=== PATIENT | female | born 1965 | race Hispanic/Latino ===

== ENCOUNTER 2019-12-17 06:40 | Emergency (ER) | payer SELFPAY ==
[2019-12-17] MEDS ORDERED: Ondansetron ODT 4 MG TAB ONE (06:49)
[2019-12-17] MEDS ORDERED: Meclizine HCl 25 MG TAB ONE ×2 (07:58→08:10)
[2019-12-17] MEDS ORDERED: Ondansetron PF 4 MG/2 ML Vial ONE (07:58)
[2019-12-17] MEDS ORDERED: Metoclopramide HCl 10 MG/2 ML VIAL ONE (07:58)
[2019-12-17 08:00] LABS: #Basophils 0.1 thou/uL (0.0-0.2); #Eosinphils 0.1 thou/uL (0.0-0.7); #Lymphocytes 1.3 thou/uL (1.20-3.40); #Monocytes 0.2 thou/uL (0.11-0.59); #Neutrophils 4.4 thou/uL (1.40-6.50); %Basophils 1.2 % (0.0-1.0); %Lymphocytes 20.9 % (21.0-51.0); %Monocytes 4.1 % (0.0-10.0); %Neutrophils 72.8 % (42.0-75.0); Hemoglobin 14.3 g/dL (12.0-16.0); Mean Corpuscular HGB CONC 33.1 g/dL (32.0-36.0); Mean Corpuscular Hemoglobin 33.2 pg (27.0-31.0); Platelet Count 168 thou/uL (130-400)
[2019-12-17 08:17] LABS: ALT (SGPT) 81 U/L (8-55); AST (SGOT) 240 U/L (5-34); Albumin 4.4 g/dL (3.5-5.0); Alkaline Phosphatase 163 U/L (40-110); Anion Gap 20 mmol/L (10-20); BUN (Urea Nitrogen) 8 mg/dL (9.8-20.1); Bilirubin, Total 0.8 mg/dL (0.2-1.2); Calc. Creatinine Clearance 0 mL/min (70-130); Calcium 8.6 mg/dL (7.8-10.44); Carbon Dioxide 23 mmol/L (22-29); Chloride 106 mmol/L (98-107); Estimated GFR-MDRD 47; Globulin 3.9 g/dL (2.4-3.5); Glucose 138 mg/dL (70-105); Lipase 79 U/L (8-78); Protein, Total 8.3 g/dL (6.0-8.3); Sodium 146 mmol/L (136-145)
[2019-12-17] MEDS ORDERED: Morphine 4 MG/ML VIAL ONE (09:17)
[2019-12-17] MEDS ORDERED: Potassium Chloride 20 MEQ TAB ONE (09:17)
[2019-12-17 09:23] LABS: Bilirubin Negative (Negative); Blood, Urine Trace (Negative); Clarity Clear (Clear); Glucose, Urine (Dipstick) Negative (Negative); Leukocyte Negative (Negative); Nitrite Negative (Negative); Protein, Urine (Dipstick) Trace mg/dL (Neg-Trace)
[2019-12-17 09:29] LABS: RBC/HPF 0-3 HPF (0-3)
[2019-12-17 09:30] LABS: Bacteria/HPF Rare-Few HPF (None Seen); Squamous Epithelial 0-3 HPF (0-3); WBC/HPF 0-3 HPF (0-3)
== END 2019-12-17 10:49 | disposition home or self-care (01) ==
LOC: BURERS 06:40
DX: E86.0 Dehydration (principal); E87.6 Hypokalemia; R11.2 Nausea with vomiting, unspecified; R19.7 Diarrhea, unspecified; R74.0 Nonspecific elevation of levels of transaminase and lactic acid dehydrogenase [LDH]
CPT/HCPCS: 80053; 81003; 81015; 83690; 83735; 85025; 87804; 93005; 96365; 96366; 96375; J2270; J2405; J2765; J8597; Q0162

== ENCOUNTER → 2020-03-17 | Emergency (ER) | payer OTHER, SELFPAY ==
[~2020-03-17] MED LIST: Aspirin Chewable 81 MG TAB ONE; Iopamidol 370 76% 100 ML VIAL ONE; Lorazepam 2 MG/ML VIAL ONE; Magnesium 2 GM/50 ML BAG (IN WATER) ONE; Nitroglycerin 0.4 MG TAB 1 EACH ONE; Nitroglycerin 2% Ointment 1 INCH/1 GM Packet ONE; Ondansetron ODT 4 MG TAB SL PRN; Ondansetron PF 4 MG/2 ML Vial IVP PRN; Potassium Chloride 20 MEQ TAB ONE
[2020-03-17 14:30] LABS: #Basophils 0.1 thou/uL (0.0-0.2); #Lymphocytes 0.8 thou/uL (1.20-3.40); #Monocytes 0.5 thou/uL (0.11-0.59); #Neutrophils 8.9 thou/uL (1.40-6.50); %Eosinophils 0.1 % (0.0-10.0); %Lymphocytes 7.7 % (21.0-51.0); %Monocytes 5.2 % (0.0-10.0); %Neutrophils 86.1 % (42.0-75.0); Hemoglobin 14.7 g/dL (12.0-16.0); Mean Corpuscular HGB CONC 31.7 g/dL (32.0-36.0); Mean Corpuscular Hemoglobin 31.8 pg (27.0-31.0); Mean Platelet Volume 7.9 fL (7.4-10.4); Platelet Count 236 thou/uL (130-400); RBC Distribution Width 12.6 % (11.5-14.5); Red Blood Cell (RBC) Count 4.63 mill/uL (4.20-5.40); White Blood Cell (WBC) Count 10.4 thou/uL (4.8-10.8)
[2020-03-17 14:48] LABS: ALT (SGPT) 79 U/L (8-55); AST (SGOT) 169 U/L (5-34); Acetaminophen Less than 6.0 mcg/mL (10.0-30.0); Albumin 4.7 g/dL (3.5-5.0); Alcohol 19 mg/dL (Less than 10); Alkaline Phosphatase 163 U/L (40-110); Anion Gap 22 mmol/L (10-20); BUN (Urea Nitrogen) 5 mg/dL (9.8-20.1); CK (CPK) 278 U/L (29-168); Calc. Creatinine Clearance 0 mL/min (70-130); Calcium 9.3 mg/dL (7.8-10.44); Carbon Dioxide 22 mmol/L (22-29); Chloride 100 mmol/L (98-107); Estimated GFR-MDRD 47; Globulin 4.1 g/dL (2.4-3.5); Glucose 123 mg/dL (70-105); Lipase 41 U/L (8-78); Protein, Total 8.8 g/dL (6.0-8.3); Salicylate Less than 8.0 mg/dL (15.0-30.0); Sodium 141 mmol/L (136-145)
[2020-03-17 14:54] LABS: Bilirubin Negative (Negative); Blood, Urine Small (Negative); Clarity Clear (Clear); Glucose, Urine (Dipstick) Negative (Negative); Leukocyte Negative (Negative); Nitrite Negative (Negative); Protein, Urine (Dipstick) > or equal to 300 mg/dL (Neg-Trace)
[2020-03-17 14:55] LABS: Bacteria/HPF None Seen HPF (None Seen); RBC/HPF 0-3 HPF (0-3); Squamous Epithelial 0-3 HPF (0-3); WBC/HPF 0-3 HPF (0-3)
[2020-03-17 14:58] LABS: Potassium 2.9 mmol/L (3.5-5.1)
[2020-03-17 15:02] LABS: Amphetamine Not Detected (NotDetected); Benzodiazepine Screen Not Detected (NotDetected); Cocaine Metabolite Screen Detected (NotDetected); Methamphetamine Detected (NotDetected); Opiate Screen Not Detected (NotDetected); Phencyclidine (PCP) Not Detected (NotDetected); THC/Cannabinoid Screen Detected (NotDetected)
[2020-03-17 15:03] LABS: Barbiturates Screen Not Detected (NotDetected); Medtox Control Line Valid? VALID (VALID); Methadone Not Detected (NotDetected); Oxycodone Screen Not Detected (NotDetected); Tricyclic Screen Not Detected (NotDetected)
[2020-03-17 15:03] LABS: CKMB 4.2 ng/mL (0-6.6)
--- NOTE | 2020-03-17 15:14 | RAD ---
PORTABLE CHEST: Date: 03-17-2020 An AP portable film at 1428 is compared with a 08-29-11 study. FINDINGS: The heart is normal in size and the lungs are clear. No infiltrate or effusion was seen. There is no adverse interval change. There is no edema or congestion. IMPRESSION: No acute findings. POS: HOME
--- NOTE | 2020-03-17 15:50 | CT ---
CT ANGIO OF THE CHEST WITH CONTRAST: Date: 03-17-[address] of the chest was performed for evaluation of chest pain, shortness of breath, and an elevat ed D-Dimer. Axial slices were acquired after giving a bolus of IV contrast, then multiplanar reconstr uctions, including MIP imaging, was done. FINDINGS: There is moderately good opacification of the pulmonary artery system. There were no defects in the m ore proximal branches to suggest embolism. Small distal clots would be missed on this study. There is no sign of aortic aneurysm or resection. There is no significant arterial sclerotic change. The annamaria nary arteries showed no significant calcification. The lungs are clear except for some minor dependen t atelectasis. No infiltrates were seen. Scans into the upper abdomen showed a small hiatal hernia. T here may be fatty infiltration of the liver. The visible portions of the adrenal glands appeared norm al. IMPRESSION: Moderate sensitivity study showing no evidence of pulmonary embolism in the large to mid-size branche s. Preliminary report called to Dr. Wooten at 1541 on 03-17-2020. POS: HOME
[2020-03-18 11:19] LABS: SARS-CoV-2 MS2 Positive; SARS-CoV-2 N Gene Negative; SARS-CoV-2 S Gene Negative; SARS-CoV-2 orf1ab Negative
== END ==
LOC: BURERS 13:32
DX: R07.89 Other chest pain (principal); E87.6 Hypokalemia; E83.42 Hypomagnesemia; F19.10 Other psychoactive substance abuse, uncomplicated; F41.9 Anxiety disorder, unspecified; Z20.828 Contact with and (suspected) exposure to other viral communicable diseases
CPT/HCPCS: 36415; 71045; 71275; 80053; 80306; 80307; 81003; 81015; 82550; 82553; 83690; 83735; 83880; 84484; 85025; 85379; 87635; 87804; 93005; 96361; 96365; 96375; 96376; J2060; J3475; Q9967; U0003

== ENCOUNTER 2020-05-11 05:26 | Emergency (ER) | payer OTHER, SELFPAY ==
[2020-05-11] MEDS ORDERED: Lorazepam 2 MG/ML VIAL ONE (05:56)
[2020-05-11 06:04] LABS: #Basophils 0.1 thou/uL (0.0-0.2); #Eosinphils 0.3 thou/uL (0.0-0.7); #Lymphocytes 1.6 thou/uL (1.20-3.40); #Monocytes 0.5 thou/uL (0.11-0.59); #Neutrophils 8.5 thou/uL (1.40-6.50); %Basophils 1.2 % (0.0-1.0); %Eosinophils 2.8 % (0.0-10.0); %Lymphocytes 14.2 % (21.0-51.0); %Monocytes 4.5 % (0.0-10.0); %Neutrophils 77.3 % (42.0-75.0); Hemoglobin 14.1 g/dL (12.0-16.0); Mean Corpuscular HGB CONC 31.9 g/dL (32.0-36.0); Mean Corpuscular Hemoglobin 32.4 pg (27.0-31.0); Mean Platelet Volume 8.4 fL (7.4-10.4); Platelet Count 172 thou/uL (130-400); RBC Distribution Width 13.3 % (11.5-14.5); Red Blood Cell (RBC) Count 4.36 mill/uL (4.20-5.40)
[2020-05-11] MEDS ORDERED: Aspirin Chewable 81 MG TAB ONE (06:10)
[2020-05-11 06:16] LABS: ALT (SGPT) 70 U/L (8-55); AST (SGOT) 195 U/L (5-34); Acetaminophen Less than 6.0 mcg/mL (10.0-30.0); Albumin 4.3 g/dL (3.5-5.0); Alcohol 146 mg/dL (Less than 10); Alkaline Phosphatase 268 U/L (40-110); Anion Gap 24 mmol/L (10-20); BUN (Urea Nitrogen) Less than 4 mg/dL (9.8-20.1); Bilirubin, Total 1.4 mg/dL (0.2-1.2); CK (CPK) 291 U/L (29-168); Calc. Creatinine Clearance 0 mL/min (70-130); Carbon Dioxide 21 mmol/L (22-29); Chloride 105 mmol/L (98-107); Estimated GFR-MDRD 71; Globulin 4.1 g/dL (2.4-3.5); Glucose 149 mg/dL (70-105); Lipase 39 U/L (8-78); Magnesium 2.1 mg/dL (1.6-2.6); Potassium 3.2 mmol/L (3.5-5.1); Protein, Total 8.4 g/dL (6.0-8.3); Salicylate Less than 8.0 mg/dL (15.0-30.0); Sodium 147 mmol/L (136-145)
[2020-05-11] MEDS ORDERED: Multivit, Adult Inj 10 ML VIAL ONE (06:24)
[2020-05-11 06:26] LABS: Amphetamine Not Detected (NotDetected); Barbiturates Screen Not Detected (NotDetected); Benzodiazepine Screen Not Detected (NotDetected); Cocaine Metabolite Screen Not Detected (NotDetected); Medtox Control Line Valid? VALID (VALID); Methadone Not Detected (NotDetected); Methamphetamine Not Detected (NotDetected); Opiate Screen Not Detected (NotDetected); Oxycodone Screen Not Detected (NotDetected); Phencyclidine (PCP) Not Detected (NotDetected); THC/Cannabinoid Screen Detected (NotDetected); Tricyclic Screen Not Detected (NotDetected)
[2020-05-11] MEDS ORDERED: Thiamine HCl 200 MG/2 ML VIAL ONE (06:31)
[2020-05-11 06:32] LABS: CKMB 3.3 ng/mL (0-6.6)
[2020-05-11] MEDS ORDERED: Nitroglycerin 2% Ointment 1 INCH/1 GM Packet ONE (06:51)
--- NOTE | 2020-05-11 10:39 | RAD ---
AP PORTABLE CHEST: 05/11/2020 0619 HOURS COMPARISON: 03/17/2020 FINDINGS: The heart is normal in size and the lungs are clear. No infiltrate or effusion is seen. There is no v ascular congestion or edema. IMPRESSION: No acute thoracic findings. POS: HOME
== END 2020-05-11 07:00 | disposition short-term general hospital (02) ==
LOC: BURERS 05:26
DX: R07.2 Precordial pain (principal); F10.129 Alcohol abuse with intoxication, unspecified; Z20.828 Contact with and (suspected) exposure to other viral communicable diseases; F41.9 Anxiety disorder, unspecified
CPT/HCPCS: 71045; 80053; 80306; 80307; 82550; 82553; 83605; 83690; 83735; 84443; 84484; 85025; 93005; 96365; 96368; 96375; J2060; J3411